=== PATIENT | female | born 1990 | race Two or more races ===

== ENCOUNTER 2022-11-29 11:05 | Outpatient (CLI) | payer OTHER | END 2022-11-29 11:17 | disposition home or self-care (01) | LOC: SONOGRAMA 11:05 | PROVIDERS: ATTEND Obstetrics & Gynecology | DX: N94.0 Mittelschmerz (principal); R10.2 Pelvic and perineal pain; N94.89 Other specified conditions associated with female genital organs and menstrual cycle ==